=== PATIENT | male | born 1965 | race Caucasian/White ===

== ENCOUNTER 2018-07-12 11:31 | Outpatient (CLI) | payer OTHER | END 2018-07-12 11:32 | disposition home or self-care (01) | DRG 558 | LOC: CONVCARE 11:31 | PROVIDERS: ATTEND Orthopaedic Surgery | DX: M75.102 Unspecified rotator cuff tear or rupture of left shoulder, not specified as traumatic (principal) | CPT/HCPCS: 73030 ==